=== PATIENT | female | born 1950 | race Caucasian/White ===

== ENCOUNTER → 2017-09-12 18:21 | Outpatient (CLI) | payer MEDICARE, OTHER, SELFPAY ==
--- NOTE | 2017-09-12 18:29 | DI.MRI.S_ITS ---
PROCEDURE: MR LUMBAR SPINE WO CON INDICATIONS: LUMBOSACRAL RADICULITIS TECHNIQUE: Noncontrast sagittal T1 spin echo and T2 fast echo, sagittal STIR, axial T1 and T2 fast spin echo through the lumbar spine. In cases with scoliosis, additional coronal T2 fast spin echo may be performed. COMPARISON: None. FINDINGS: Image quality: Excellent. Alignment and Curvature: There is trace retrolithesis throughout the lumbar spine, most notable at L2 on L3, L3 on L4. Bone Marrow: Marrow is of normal overall signal. No acute vertebral body compression fractures. Spinal Cord: Conus medullaris terminates at the L2 level. Visualized cord demonstrates normal signal and size. Paraspinous Soft Tissues: No paravertebral masses. Multilevel moderate disc space narrowing throughout the lumbar spine. L1-L2: Mild disc bulge with minimal spinal stenosis. No foraminal narrowing. Facet and ligamentum flavum hypertrophy. L2-L3: Mild disc bulge with mild spinal stenosis. No foraminal narrowing. Facet and ligamentum flavum hypertrophy, as well as minimal epidural lipomatosis. L3-L4: Mild disc bulge with mild to moderate spinal stenosis. Moderate bilateral foraminal narrowing with facet and ligament hypertrophy. L4-L5: Mild disc bulge with right foraminal protrusion. There is mild spinal stenosis. There is severe right and mild left foraminal narrowing with facet and ligamentum flavum hypertrophy. L5-S1: Mild disc bulge without spinal stenosis. Moderate to severe left and mild right foraminal narrowing with facet and ligament hypertrophy. IMPRESSION: 1. Multilevel disc bulges. 2. Multilevel spinal stenosis most notable at L3-4, secondary to disc bulge and retrolithesis. 3. Foraminal narrowing, most severe at L4-5, secondary to retrolithesis and facet arthropathy. Dictated by: Roberta Bazan M.D. on 09/15/2017 at 12:12 Approved by: Roberta Bazan M.D. on 09/15/2017 at 12:36
== END ==
PROVIDERS: Family Provider Family Medicine; PCP Family Medicine; Visit Provider Family Medicine
DX: M54.16 Radiculopathy, lumbar region (principal); M51.26 Other intervertebral disc displacement, lumbar region; M48.061 Spinal stenosis, lumbar region without neurogenic claudication
CPT/HCPCS: 72148

== ENCOUNTER → 2020-07-13 09:35 | Outpatient (CLI) | payer MEDICARE, OTHER, SELFPAY ==
--- NOTE | 2020-07-13 | DI.MG.S_ITS ---
BILATERAL DIGITAL SCREENING MAMMOGRAM 3D/2D WITH CAD: 07/13/2020 CLINICAL: Routine screening. Comparison is made to exams dated: 09/16/2014 mammogram, 07/01/2013 mammogram, and 02/06/2012 mammogram - [facility]. There are scattered fibroglandular elements in both breasts. Current study was also evaluated with a Computer Aided Detection (CAD) system. There are grouped heterogeneous calcifications in the left breast at 11 o'clock middle depth. These are increased in number. No other significant masses, calcifications, or other findings are seen in either breast. IMPRESSION: INCOMPLETE: NEEDS ADDITIONAL IMAGING EVALUATION The grouped heterogeneous calcifications in the left breast are indeterminate. Magnification, lateral, and additional views are recommended. This exam was interpreted at Station ID: [id number]. NOTE: For mammograms, a report in lay terms will be sent to the patient. Approximately 15% of breast malignancies will not be visualized mammographically. In the management of a palpable breast mass, a negative mammogram must not discourage biopsy of a clinically suspicious lesion. Electronically Signed By: Braxton britt/lizeth:07/13/2020 10:54:43 letter sent: Additional Imaging Needed ACR BI-RADS Category 0: Incomplete [id number]
== END ==
PROVIDERS: Family Provider Family Medicine; PCP Family Medicine; Referring Provider Family Medicine; Visit Provider Family Medicine
DX: Z12.31 Encounter for screening mammogram for malignant neoplasm of breast (principal); Z13.820 Encounter for screening for osteoporosis; M85.851 Other specified disorders of bone density and structure, right thigh; Z78.0 Asymptomatic menopausal state
CPT/HCPCS: 77063; 77067; 77080

== ENCOUNTER → 2020-08-03 09:22 | Outpatient (CLI) | payer MEDICARE, OTHER, SELFPAY ==
--- NOTE | 2020-08-03 | DI.US.S_ITS ---
ULTRASOUND OF LEFT BREAST: 08/03/2020 CLINICAL: Patient returns today to evaluate a focal asymmetry in the left breast. Comparison is made to exams dated: 08/03/2020 mammogram, 07/13/2020 mammogram - [facility], 09/16/2014 ultrasound, and 09/16/2014 mammogram - [facility]. Color flow and real-time ultrasound of the left breast were performed. Hung scale images of the real-time examination were reviewed. No significant abnormalities were seen sonographically in the left breast. No abnormalities were identified in the middle to posterior third depth superior aspect of the left breast to correlate with new grouped coarse, heterogeneous calcifications seen on mammographic evaluation. IMPRESSION: INCOMPLETE: NEEDS ADDITIONAL IMAGING EVALUATION No abnormalities were identified in the middle to posterior third depth superior aspect of the left breast to correlate with new grouped coarse, heterogeneous calcifications seen on mammographic evaluation. These are at a low suspicion for malignancy and a stereotactic guided biopsy is recommended. The grouped calcifications may possibly represent two closely grouped coarse, heterogeneous calcifications measuring approximately 1 cm apart. The calcifications look very similar in size, shape, and distribution and likely represent similar etiologies. Biopsy of either the more anterior or posterior margins of these grouped calcifications can be performed. Findings and recommendations were discussed with the patient during today's examination. Need for biopsy was discussed with the patient by Dr. Miller. This exam was interpreted at Station ID: [id number]. Electronically Signed By: Norbert Rodriguez M.D. aty/:08/03/2020 11:48:45 letter sent: Biopsy Required Ultrasound BI-RADS: 0 Indeterminate
--- NOTE | 2020-08-03 | DI.MG.S_ITS ---
UNILATERAL LEFT DIGITAL DIAGNOSTIC MAMMOGRAM 3D/2D WITH ADDITIONAL VIEWS: 08/03/2020 CLINICAL: Additional evaluation requested from prior study. Comparison is made to exams dated: 07/13/2020 mammogram - [facility], 09/16/2014 mammogram, and 07/01/2013 mammogram - [facility]. There are scattered fibroglandular elements in left breast. There are grouped coarse heterogeneous calcifications in the left breast at 11 o'clock posterior depth. These are seen in additional views. These are increased in number and may be distributed in two 1.0cm groups that are approximately 1.0 cm apart from each other. Suggestion of associated focal asymmetry with these grouped calcifications. No other significant masses or other suspicious calcifications are seen in the breast. IMPRESSION: INCOMPLETE: NEEDS ADDITIONAL IMAGING EVALUATION The grouped coarse heterogeneous calcifications in the left breast are indeterminate. An ultrasound is recommended for further evaluation and is scheduled to immediately follow this examination. This exam was interpreted at Station ID: [id number]. NOTE: For mammograms, a report in lay terms will be sent to the patient. Approximately 15% of breast malignancies will not be visualized mammographically. In the management of a palpable breast mass, a negative mammogram must not discourage biopsy of a clinically suspicious lesion. Electronically Signed By: Norbert Rodriguez M.D. aty/:08/03/2020 10:06:44 ACR BI-RADS Category 0: Incomplete [id number]
== END ==
PROVIDERS: Family Provider Family Medicine; PCP Family Medicine; Referring Provider Family Medicine; Visit Provider Family Medicine
DX: R92.8 Other abnormal and inconclusive findings on diagnostic imaging of breast (principal); R92.1 Mammographic calcification found on diagnostic imaging of breast
CPT/HCPCS: 76642; 77065; G0279

== ENCOUNTER → 2025-01-31 14:14 | Outpatient (CLI) | payer MEDICARE, OTHER, SELFPAY ==
--- NOTE | 2025-01-31 14:17 | DI.RAD.S_ITS ---
PROCEDURE: XR DEXA AXIAL SKELETON INDICATIONS: Postmenopausal Screening COMPARISON: [facility], CR, XR DEXA AXIAL SKELETON, 07/13/2020, 10:03. FINDINGS: Lumbar Spine: Bone mineral density 1.037 g/cm2, T score -0.1 compared to -0.2. Left Femoral Neck: Bone mineral density 0.603 g/cm2, T score -2.2 compared to - 1.9 demonstrating approximate 5% bone mineral density loss. Left Hip: Bone mineral density 0.845 g/cm2, T score -0.8, compared to -1.9 demonstrating approximate 4% bone mineral density gain. Fracture Risk Calculation (when applicable): 10-year fracture risk of a major osteoporotic fracture 22 percent and of a hip fracture 9.6 percent. (T score greater or equal to -1.0 to: NORMAL) (T score from -1.1 to -2.4: OSTEOPENIA) (T score less than or equal to -2.5: OSTEOPOROSIS) IMPRESSION: Severe osteopenia progressive compared to prior exam in the femoral neck. Follow-up guidelines as follows: Osteoporosis: Consider a repeat DEXA and Vertebral Fracture Assessment (VFA) exam in 2 years or sooner if medically necessary, to reassess this patient's status. Osteopenia: Consider a repeat DEXA in 2-3 years to reassess this patient's status, or if there is a new clinical indication. Normal: Consider a repeat DEXA in 5 years or sooner, or if there is a new clinical indication. All treatment decisions require clinical judgment and consideration of individual patient factors, including patient preferences, comorbidities, previous drug use, risk factors not captured in the FRAX model (e.g., frailty, falls, vitamin D deficiency, increased bone turnover, interval significant decline in bone density ) and possible under- or over-estimation of fracture risk by FRAX. In addition, the NOF Guide recommends that FDA-approved medical therapies be considered in postmenopausal women and men age >= 50 years with a: * Hip or vertebral (clinical or morphometric) fracture * T-score of <=-2.5 at the spine or hip * Ten-year fracture probability by FRAX of >= 3% for hip fracture or >=20% for major osteoporotic fracture. Dictated by: Roberta Bazan M.D. on 01/31/2025 at 16:28 Approved by: Roberta Bazan M.D. on 01/31/2025 at 16:29
== END ==
LOC: RAD 14:16
PROVIDERS: Family Provider Family Medicine; PCP Physician Assistant; Referring Provider Physician Assistant; Visit Provider Physician Assistant
DX: M85.852 Other specified disorders of bone density and structure, left thigh (principal); Z78.0 Asymptomatic menopausal state
CPT/HCPCS: 77080